=== PATIENT | female | born 1990 | race Caucasian/White ===

== ENCOUNTER 2020-05-25 20:58 | Emergency (ER) | payer SELFPAY ==
[~2020-05-25] VITALS: Ht 165.1 cm; Wt 72.6 kg
[2020-05-25 21:35] VITALS: BP 107/72
--- NOTE | 2020-05-25 21:38 | NUR ---
TO LOBBY A/W BED AMBULATORY
--- NOTE | 2020-05-25 23:11 | NUR ---
PT AMBULATED TO ER BED 8 W/ STEADY GAIT.
--- NOTE | 2020-05-25 23:17 | NUR ---
29 Y/O FEMALE PRESENTED TO ED C/O BODY ACHES, FEVER, CHILLS AND BL EAR PAIN X 2 DAYS. PT STATES SHE HAS JUST NOT BEEN FEELING WELL. 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 PT DOES NOT BELIEVE SHE HAS BEEN AROUND ANYONE W/ COVID OR FLU. BL LUNG SOUNDS CLEAR THROUGHOUT. +PRODUCTIVE COUGH. OXYGEN LEVEL 100% RA. RR EVEN AND UNLABORED. NO FEVER NOTED AT THIS TIME. PT CONNECTED TO PULSE OX . VSS. NO ACUTE DISTRESS. PT RESTING IN BED, LOCKED AND IN LOWEST POSITION, HOB ELEVATED, SIDE RAIL X1. PT PROVIDED W/ BLANKET FOR COMFORT. PMH: CARIN HOGUE
--- NOTE | 2020-05-25 23:17 | NUR ---
ERMD AT BEDSIDE FOR MEDICAL EVALUATION.
--- NOTE | 2020-05-25 23:45 | NUR ---
JORGE SUH SWAB COLLECTED AND HANDED TO MAKI PALMA.
[2020-05-25 23:50] VITALS: BP 102/65
--- NOTE | 2020-05-25 23:50 | NUR ---
Patient discharged with v/s stable. Written and verbal after care instructions given and explained. Patient verbalized understanding. Ambulatory with steady gait. All questions addressed prior to discharge. Advised to follow up with PMD.
== END 2020-05-25 23:50 | disposition home or self-care (01) ==
LOC: MED 20:58
DX: J06.9 Acute upper respiratory infection, unspecified (principal); Z20.822 Contact with and (suspected) exposure to COVID-19
CPT/HCPCS: 71045; 99284; U0003